=== PATIENT | male | born 1980 | race Caucasian/White ===

== ENCOUNTER 2017-04-08 05:40 | Outpatient (CLI) | payer OTHER ==
[~2017-04-08] VITALS: Ht 188 cm; Wt 83.9 kg
[~2017-04-08 05:40] MED LIST: CETI10TA17 PO; OMEP20CA12 PO; PANT40TA PO; SCR1T1 PO
== END 2017-04-08 10:50 ==
LOC: PREOP 05:40
PROVIDERS: ATTEND Surgery
DX: Z01.818 Encounter for other preprocedural examination (principal); K21.9 Gastro-esophageal reflux disease without esophagitis; Z86.010 Personal history of colon polyps

== ENCOUNTER 2017-04-22 11:58 | Day surgery (SDC) | payer OTHER ==
[~2017-04-22] VITALS: Ht 188 cm; Wt 83.9 kg
[2017-04-22] MEDS ORDERED: LIDOCAINE JELLY 2% (XYLOCAINE) 5 ML TUBE MM PRN (12:15)
[2017-04-22] MEDS ORDERED: HURRICAINE EXT TUBE (BENZOCAINE) XX PRN (12:15)
[2017-04-22 12:20] VITALS: BP 120/75
--- OUTSIDE RECORDS SUMMARY | 2017-04-22 12:27 | XMS REPORT | Continuity of Care Document ---
Author Author [facility] Organization [facility] Address Unknown Phone Unavailable Allergies Active Description Code Type Severity Reaction Onset Reported/Identified Relationship to Patient Clinical Status Yes No Known Drug Allergies [id number] Drug Allergy Unknown N/ A 04/08/2017 Medications Problems Date Dx Coded Attending Type Code Diagnosis Diagnosed By 01/31/2013 REYES KAUFFMAN MD, Ot 211.4 BENIGN NEOPL RECTUM/ANUS 01/31/2013 REYES KAUFFMAN MD, Ot 530.11 REFLUX ESOPHAGITIS 01/31/2013 REYES KAUFFMAN MD Ot 535.50 UNSP GASTRITIS GASTRODUODENITIS W/O ME 01/31/2013 REYES KAUFFMAN MD, Ot 553.3 DIAPHRAGMATIC HERNIA 01/31/2013 REYES KAUFFMAN MD Ot V16.0 FAMILY HX-GI MALIGNANCY 03/31/2017 REYES KAUFFMAN MD Ot V72.84 EXAM PRE-OPERATIVE NOS 04/08/2017 REYES KAUFFMAN MD, Ot K21.9 GASTRO-ESOPHAGEAL REFLUX DISEASE WITHOUT 04/08/2017 REYES KAUFFMAN MD Ot Z01.818 ENCOUNTER FOR OTHER PREPROCEDURAL EXAMIN 04/08/2017 REYES KAUFFMAN MD, Ot Z86.010 PERSONAL HISTORY OF COLONIC POLYPS 04/08/2017 REYES KAUFFMAN MD, Ot K21.9 GASTRO-ESOPHAGEAL REFLUX DISEASE WITHOUT 04/08/2017 REYES KAUFFMAN MD Ot Z01.818 ENCOUNTER FOR OTHER PREPROCEDURAL EXAMIN 04/08/2017 REYES KAUFFMAN MD, Ot Z86.010 PERSONAL HISTORY OF COLONIC POLYPS 04/14/2017 REYES KAUFFMAN MD, Ot K21.9 GASTRO-ESOPHAGEAL REFLUX DISEASE WITHOUT 04/14/2017 REYES KAUFFMAN MD Ot Z01.818 ENCOUNTER FOR OTHER PREPROCEDURAL EXAMIN 04/14/2017 REYES KAUFFMAN MD, Ot Z86.010 PERSONAL HISTORY OF COLONIC POLYPS Procedures Results Encounters ACCT No. Visit Date/Time Discharge Status Pt. Type Provider Facility Loc./Unit Complaint [id number] 04/15/2017 12:00:00 2016 23:59:59 CLS Preadmit REYES KAUFFMAN MD [facility] ENDO HX POLYPS/REFLUX [id number] 04/08/2017 05:40:00 2016 10:50:00 DIS Outpatient REYES KAUFFMAN MD [facility] PREOP COLONOSCOPY/EGD [id number] 01/31/2013 08:19:00 2012 12:50:00 DIS Outpatient REYES KAUFFMAN MD [facility] SDC SCREENING/REFLUX [id number] 01/24/2013 07:16:00 2012 23:59:59 CLS Outpatient REYES KAUFFMAN MD [facility] PREOP SCREENING/REFLUX [id number] 04/22/2017 11:58:00 ACT Outpatient REYES KAUFFMAN MD [facility] ENDO HX POLYPS/REFLUX
[2017-04-22] MEDS ORDERED: NS IV 500 ML 500 ML IV PRN (12:30)
[2017-04-22] MEDS ORDERED: MIDAZOLAM 2 MG/2 ML (VERSED) VIAL ONE ×5 (12:33→13:13)
[2017-04-22] MEDS ORDERED: fentaNYL INJECTION 100 MCG/2 ML AMP ONE ×2 (12:34)
[2017-04-22] MEDS ORDERED: HURRICAINE EXT TUBE (BENZOCAINE) ONE (12:34)
[2017-04-22] MEDS ORDERED: LIDOCAINE JELLY 2% (XYLOCAINE) 5 ML TUBE ONE (12:35)
[2017-04-22] MEDS: fentaNYL INJECTION 100 MCG/2 ML AMP IVP PRN ×4 (12:53→13:35)
--- NOTE | 2017-04-22 12:54 | Conscious Sedation/ASA ---
Conscious Sedation Pre-Proced Time Reviewed: 12:30 ASA Class: 1 Airway Mallampati Classification: ([place] appropriate class) I. II. III, IV Lungs Heart ASA score ASA 1: a normal healthy patient ASA 2: a patient with a mild systemic disease (mid diabetes, controlled hypertension, obesity ASA 3: a patient with a severe systemic disease that limits activity (angina , COPD, prior Myocardial infarction) ASA 4: a patient with an incapacitating disease that is a constant threat to life (CHF, renal failure) ASA 5: a moribund patient not expected to survive 24 hrs. (ruptured aneurysm) ASA 6: a declared brain patient whose organs are being harvested. For emergent operations, add the letter E after the classification Grade 2 Sedation Plan: Analgesia, Amnesia, Plan communicated to team members, Discussed options with patient/fam, Discussed risks with patient/fam Note The patient is an appropriate candidate to undergo the planned procedure, sedation, and anesthesia. The patient immediately re-assessed prior to indication. REYES KAUFFMAN MD Apr 22, 2017 12:54 pm
[2017-04-22] MEDS: MIDAZOLAM 2 MG/2 ML (VERSED) VIAL IVP PRN ×5 (12:55→13:20)
--- NOTE | 2017-04-22 12:55 | Progress Note-Pre Operative ---
Pre-Operative Progress Note H&P Reviewed The H&P was reviewed, patient examined and no changes noted. Date Seen by Provider: Apr 22, 2017 Time Seen by Provider: 12:30 Date H&P Reviewed: Apr 22, 2017 Time H&P Reviewed: 12:30 Pre-Operative Diagnosis: GERD, hx polyp, family hx colon ca REYES KAUFMFAN MD Apr 22, 2017 12:55 pm
[2017-04-22] MEDS ORDERED: HYDROcodone/APAP 5 MG/325 MG (LORTAB) TAB PO PRN (13:00)
[2017-04-22] MEDS ORDERED: ACETAMINOPHEN 325 MG TABLET/CAPLET (TYLENOL) PO PRN (13:00)
[2017-04-22] MEDS ORDERED: ONDANSETRON 4 MG/2 ML (SDV) Z0FRAN IV PRN (13:00)
[2017-04-22] MEDS ORDERED: morphine INJ 10 MG/ML 1ML (SYR OR VIAL) IV PRN (13:00)
--- NOTE | 2017-04-22 13:58 | Progress Note-Post Operative ---
Post-Operative Progess Note Surgeon (s)/Seasonal Package Handler (s) Surgeon REYES KAUFFMAN MD Seasonal Package Handler: none Pre-Operative Diagnosis GERD, hx polyp, family hx colon ca Post-Operative Diagnosis reflux esophagitis(class B), small-mod HH(2.5cm), chronic small antral ulcer. normal colon and rectum. Procedure & Operative Findings Date of Procedure 04/22/17 Procedure Performed/Findings EGD with bx. Colonoscopy. Anesthesia Type CS Estimated Blood Loss Estimated blood loss (mL): minimal Specimens/Packing Specimens Removed GE jxn, antrum REYES KAUFFMAN MD Apr 22, 2017 1:58 pm
[2017-04-22] MEDS ORDERED: PANT40TA2 PO (13:59)
[2017-04-22 14:00] VITALS: BP 101/60
--- NOTE | 2017-04-22 14:00 | Discharge Inst-Surgical ---
D/C Lap Instructions-KIDO New, Converted, or Re-Newed RX: RX on Chart Follow Up 5 yrs Activity as tolerated High Fiber Diet 25g or more per day Avoid Alcohol, Caffeine, Spicy [place] and Acid foods. Drink 64 fluid oz or more of fluids per day. Symptoms to Report: Fever over 101 degree F, Nausea/Vomiting If any problems/questions: Contact your physician or go to Emergency Room REYES KAUFFMAN MD Apr 22, 2017 1:59 pm
[2017-04-22 14:45] VITALS: BP 114/69
[2017-04-22 14:55] VITALS: BP 114/69
--- NOTE | 2017-04-22 18:17 | OPERATIVE REPORT ---
DATE OF SERVICE: 04/22/2017 ATTENDING PRIMARY PHYSICIAN: Helene Khan M.D. PREOPERATIVE DIAGNOSES: Gastroesophageal reflux disease, history of colon polyp, family history of colon cancer. POSTOPERATIVE DIAGNOSES: Reflux esophagitis class B, no ulcers or strictures. Small to moderate size hiatal hernia approximately 2.5 cm in size, moderate gastritis with small old antral ulcer almost healed. Colon and rectum were normal. DISPOSITION: The patient tolerated the procedure well. INDICATIONS: The patient is a 37-year-old male known to us. We had initially seen in 2013 for gastroesophageal reflux disease as well as a family history of colon cancer. At the time, he underwent an EGD and colonoscopy. A colon polyp was identified and small and a benign hyperplastic polyp. He was also found to have a small hiatal hernia as well as moderate gastritis. Biopsies were negative for H. pylori as well as negative for [place]'s esophagus. He states that he has had worsened reflux symptoms over the past year. He may relate this to a work and stress. He also would like to have a screening colonoscopy. He does have a family history of colon cancer with his father having a disease. His brother also has had multiple polyps removed. DESCRIPTION OF PROCEDURE: The patient was brought to the endoscopy suite and laid in the left sludge decubitus position. After adequate IV pain and sedative medications and conscious sedation anesthesia, the mouthpiece was applied. The endoscope was then placed in the mouth visualizing the pharynx and hypopharyngeal region. Vocal cords, epiglottis and vallecula identified and appeared to be normal. The endoscope was then gently intubated into the esophagus and esophagus insufflated. The endoscope was then advanced to the first, second and third portions of the esophagus. At the level of the GE junction, a reflux esophagitis class B identified. There were no ulcers or strictures identified in this region. A biopsy was taken. The endoscope was then easily advanced into the stomach and then endoscope retroflexed, visualizing a small to moderate size hiatal hernia approximately 2.5 cm in size. There was a moderate severity gastritis more focused towards the stomach antrum with what appeared to be an old healing ulcer, which was small and approximately 2 to 3 mm in size. This was biopsied with forceps with visualization of good hemostasis. The endoscope was then advanced to the pylorus and the first and second portions of the duodenum with no distal obstructions. The endoscope was then slowly withdrawn while taking a second look and suctioning of residual air with no additional findings. The patient tolerated the procedure well. For his reflux esophagitis, hiatal hernia as well as gastritis. We will start him on Protonix 40 mg daily, as well as the necessary lifestyle and diet accommodation including small and more frequent meals, avoidance of eating at night as well as head elevation while laying supine. He also needs to avoid alcoholic and caffeinated beverages as well as spicy, greasy and acidic foods. We will also start him on Protonix 40 mg daily. Under the same conscious sedation anesthesia, we then proceeded with the colonoscopy portion of the procedure. A digital rectal examination was performed. There were no significant hemorrhoids identified as well as normal sphincter tone. The prostate gland was palpable and appeared normal. The endoscope was then intubated to the anus and rectum and gently insufflated. The endoscope was then advanced to the valves of [place] of the rectum with no polyps or any neoplasms identified. We then proceeded through the sigmoid colon where no diverticulosis identified. The endoscope was then advanced through the remainder of the descending, transverse and ascending colon to the cecum. These segments were normal. There were no polyps or any neoplasms identified throughout the colon or rectum. The endoscope was then slowly withdrawn while taking a second look and suctioning of residual air with no additional findings. The patient tolerated the procedure well. We will have him continue with medical management with a high fiber diet with at least 30 grams of fiber per day as well as at least 64 fluid ounces of water daily to promote soft stools on a daily basis. He does not need another colonoscopy for another 5 years. Job ID: [id number] DocumentID: [id number] Dictated Date: 04/22/2017 13:59:14 Rubber Mill Tender Date: 04/22/2017 18:17:18 Dictated By: REYES KAUFFMAN MD
== END 2017-04-22 14:55 | disposition home or self-care (01) ==
LOC: ENDO 11:58
PROVIDERS: ATTEND Surgery
DX: Z12.11 Encounter for screening for malignant neoplasm of colon (principal); Z87.19 Personal history of other diseases of the digestive system; Z80.0 Family history of malignant neoplasm of digestive organs; K21.0 Gastro-esophageal reflux disease with esophagitis; K44.9 Diaphragmatic hernia without obstruction or gangrene; K29.70 Gastritis, unspecified, without bleeding; K25.7 Chronic gastric ulcer without hemorrhage or perforation; J45.909 Unspecified asthma, uncomplicated

== ENCOUNTER → 2019-04-24 | Outpatient (CLI) | payer OTHER ==
[~2019-04-24] MED LIST changes: +PANT40TA2 PO
[2019-04-24 09:15] LABS: BASOPHILS % (AUTO) 1 % (0-10); EOSINOPHILS # (AUTO) 0.1 10^3/uL (0.0-0.3); EOSINOPHILS % (AUTO) 3 % (0-10); HEMATOCRIT 46 % (40-54); HEMOGLOBIN 15.7 G/DL (13.3-17.7); LYMPHOCYTES # (AUTO) 2.5 X 10^3 (1.0-4.0); LYMPHOCYTES % (AUTO) 51 % (12-44); MEAN CORPUSCULAR HEMOGLOBIN 32 PG (25-34); MEAN CORPUSCULAR HGB CONC 34 G/DL (32-36); MEAN CORPUSCULAR VOLUME 93 FL (80-99); MEAN PLATELET VOLUME 9.5 FL (7.4-10.4); MONOCYTES # (AUTO) 0.4 X 10^3 (0.0-1.0); MONOCYTES % (AUTO) 9 % (0-12); NEUTROPHILS # (AUTO) 1.8 X 10^3 (1.8-7.8); NEUTROPHILS % (AUTO) 37 % (42-75); PLATELET COUNT 293 10^3/uL (130-400); RED CELL DISTRIBUTION WIDTH 13.1 % (10.0-14.5); WHITE BLOOD COUNT 4.8 10^3/uL (4.3-11.0)
[2019-04-24 09:39] LABS: ALANINE AMINOTRANSFERASE 23 U/L (0-55); ALBUMIN 4.9 GM/DL (3.2-4.5); ALKALINE PHOSPHATASE 53 U/L (40-136); BILIRUBIN,TOTAL 1.1 MG/DL (0.1-1.0); BUN/CREATININE RATIO 13; CALCIUM 9.5 MG/DL (8.5-10.1); CARBON DIOXIDE 27 MMOL/L (21-32); CHLORIDE 102 MMOL/L (98-107); CHOLESTEROL 208 MG/DL (< 200); CREATININE SERUM 1.04 MG/DL (0.60-1.30); GFR ESTIMATED > 60; GLUCOSE 109 MG/DL (70-105); HDL CHOLESTEROL 96 MG/DL (40-60); POTASSIUM 4.1 MMOL/L (3.6-5.0); SODIUM 137 MMOL/L (135-145); TOTAL PROTEIN 7.3 GM/DL (6.4-8.2); TRIGLYCERIDES 61 MG/DL (<150); VLDL CHOLESTEROL 12 MG/DL (5-40)
== END ==
LOC: LAB 09:02
PROVIDERS: ATTEND Nurse Practitioner Family
DX: Z09 Encounter for follow-up examination after completed treatment for conditions other than malignant neoplasm (principal)
CPT/HCPCS: 36415; 80053; 80061; 84443; 85025

== ENCOUNTER → 2019-11-23 | Outpatient (CLI) | payer OTHER | LOC: LAB 08:52 | PROVIDERS: ATTEND Nurse Practitioner Family | DX: M25.431 Effusion, right wrist (principal) | CPT/HCPCS: 36415; 85652; 86141; 86431 ==

== ENCOUNTER 2022-09-29 05:40 | Outpatient (CLI) | payer OTHER ==
[~2022-09-29] VITALS: Ht 185.4 cm; Wt 81.8 kg
== END 2022-09-29 09:00 | disposition home or self-care (01) ==
LOC: PREOP 05:40
PROVIDERS: ATTEND Surgery
DX: Z01.818 Encounter for other preprocedural examination (principal)

== ENCOUNTER 2022-10-06 09:47 | Day surgery (SDC) | payer OTHER ==
[~2022-10-06] VITALS: Ht 185.4 cm; Wt 81.8 kg
[2022-10-06 10:08] VITALS: BP 122/84
[2022-10-06] MEDS ORDERED: LACTATED RINGERS 1,000 ML IV STA (11:43)
[2022-10-06] MEDS ORDERED: HURRICAINE EXT TUBE (BENZOCAINE) XX PRN (11:45)
[2022-10-06] MEDS ORDERED: LIDOCAINE JELLY 2% 6 ML SYRINGE MM PRN (11:45)
[2022-10-06 11:55] VITALS: BP 102/59
[2022-10-06 12:00] VITALS: BP 105/63
[2022-10-06 12:05] VITALS: BP 106/65
[2022-10-06 12:10] VITALS: BP 118/81
--- NOTE | 2022-10-06 12:18 | Progress Note-Pre Operative ---
Pre-Operative Progress Note Date of Available H&P: October 06, 2022 Date H&P Reviewed: October 06, 2022 Time H&P Reviewed: 10:30 History & Physical: No changes noted Pre-Operative Diagnosis: hx Menchaca's, GERD, screening/family hx colon ca REYES KAUFFMAN MD October 06, 2022 12:18
--- NOTE | 2022-10-06 12:22 | Progress Note-Post Operative ---
Post-Operative Progess Note Surgeon (s)/Horse Trainer (s) Surgeon REYES KAUFFMAN MD Horse Trainer: none Pre-Operative Diagnosis hx Menchaca's, GERD, screening/family hx colon ca Post-Operative Diagnosis reflux esophagitis(grade B-C), small HH(2.5cm), mod-severe gastritis, mild chronic stage 2 exxt and int hemorrhoids, small HP polyp transverse colon. Procedure & Operative Findings Date of Procedure 10/06/22 Procedure Performed/Findings EGD with bx. Colonoscopy with bx. Anesthesia Type mac Estimated Blood Loss Estimated blood loss (mL): minimal Specimens/Packing Specimens Removed ge jxn, antrum, transverse colon polyp REYES KAUFFMAN MD October 06, 2022 12:22
[2022-10-06] MEDS ORDERED: OMEP40CA6 PO (12:23)
--- NOTE | 2022-10-06 12:23 | Discharge Inst-Surgical ---
D/C Lap Instructions-KIDO New, Converted, or Re-Newed RX: RX on Chart Follow Up 5 years Activity as tolerated High Fiber Diet 25g or more per day Avoid Alcohol, Caffeine, Spicy [place] and Acid foods. Drink 64 fluid oz or more of fluids per day. Symptoms to Report: Fever over 101 degree F, Nausea/Vomiting If any problems/questions: Contact your physician or go to Emergency Room REYES KAUFFMAN MD October 06, 2022 12:23
[2022-10-06] MEDS ORDERED: ONDANSETRON 4 MG/2 ML (SDV) Z0FRAN IVP PRN (12:30)
[2022-10-06] MEDS ORDERED: ONDANSETRON 4 MG (ZOFRAN) ORAL DISSOLVE TAB PO PRN (12:30)
[2022-10-06 12:31] VITALS: BP 118/81
--- NOTE | 2022-10-06 13:09 | Anesthesia-General Post-Op ---
MAC Patient Condition Mental Status/LOC: Same as Preop Cardiovascular: Satisfactory Nausea/Vomiting: Absent Respiratory: Satisfactory Pain: Controlled Complications: Absent Post Op Complications Complications None Follow Up Care/Instructions Patient Instructions None needed. Anesthesiology Discharge Order Discharge Order Patient is doing well, no complaints, stable vital signs, no apparent adverse anesthesia problems. No complications reported per nursing. KATY HERNANDEZ CRNA October 06, 2022 13:09
--- NOTE | 2022-10-06 21:16 | OPERATIVE REPORT ---
DATE OF SERVICE: 10/06/2022 ATTENDING PRIMARY CARE PHYSICIAN: Helene Khan MD PREOPERATIVE DIAGNOSES: History of Menchaca's esophagus, gastroesophageal reflux disease, history of colon polyp, family history of colon cancer. POSTOPERATIVE DIAGNOSES: Reflux esophagitis, [place] between grade B and C; small hiatal hernia approximately 2 cm in size, moderate to severe gastritis; mild chronic stage II external and internal hemorrhoids, small hyperplastic polyp of the transverse colon. PROCEDURE: EGD with biopsy, colonoscopy with polypectomy with hot biopsy forceps. SURGEON: Reyes Cm MD ANESTHESIA: Monitored anesthesia care. ESTIMATED BLOOD LOSS: Minimal. FINDINGS: Reflux esophagitis, [place] between grade B and C; small hiatal hernia approximately 2 cm in size, moderate to severe gastritis; mild chronic stage II external and internal hemorrhoids, small hyperplastic polyp of the transverse colon. DISPOSITION: The patient tolerated the procedure well. INDICATIONS: The patient is a 42-year-old male known to us. We had initially seen him in 2012 for gastroesophageal reflux disease as well as a first-degree family history of colon cancer. He was found to have reflux esophagitis, [place] grade B and a small hiatal hernia approximately 2 to 2.5 cm in size, but with moderate gastritis. During the colonoscopy, he was found to have a small hyperplastic polyp. He underwent a repeat endoscopy in 2017 where biopsies of the GE junction were consistent with [place]chaca's esophagus. He states no significant symptoms of reflux at this time and no major changes in bowel habits. DESCRIPTION OF PROCEDURE: The patient was brought to the endoscopy suite and laid in the left lateral decubitus position. After adequate IV pain, sedative medications and monitored anesthesia care, the mouthpiece was applied. The endoscope was placed in the mouth, visualizing the pharynx and hypopharyngeal region. Vocal cords, epiglottis and vallecula identified and appeared to be normal. The endoscope was then gently intubated into the esophageal opening and esophagus insufflated. The endoscope was then advanced to the first, second, third portions of esophagus. At the level of the GE junction, a reflux esophagitis between [place] grade B and C identified. A biopsy was taken with forceps with visualization of good hemostasis. The endoscope was then advanced in the stomach and endoscope retroflexed visualizing same small hiatal hernia approximately 2 to 2.5 cm in size. There was a moderate to severe gastritis with a small erosion along the lesser curvature. A biopsy was taken of the antrum to rule out H. pylori with visualization of good hemostasis. The endoscope was then advanced to the pylorus and the first and second portion of the duodenum, which appeared normal. The endoscope was then slowly withdrawn while taking a second look and suctioning of residual air with no additional findings. A digital rectal examination was performed which revealed chronic stage II, external and internal hemorrhoids, not actively edematous nor inflamed and no bleeding. Normal sphincter tone was felt and no palpable masses. Prostate gland was palpable and appeared normal. The endoscope was then intubated into the anus, rectum gently insufflated. The endoscope was then advanced through the valves of [place] of the rectum with no polyps or any neoplasms identified. Through the sigmoid colon, no diverticulosis identified. We then proceeded through the remainder of the descending and transverse colon and at the level of the transverse colon, a small hyperplastic polyp approximately 1 to 2 mm in size was identified. This was biopsied and destroyed with forceps and electrocautery with visualization of good hemostasis. The endoscope was then advanced through the remainder of the transverse, descending colon to the cecum, which were normal. The endoscope was then slowly withdrawn while taking a second look and suctioning of residual air with no additional findings. The patient tolerated the procedure well. We will recommend the necessary lifestyle and diet accommodation for reflux esophagitis as well as gastritis, which would encompass avoidance of caffeinated beverages, spicy, greasy and acidic foods as well as alcoholic beverages. He also needs to take in small and more frequent meals and avoid eating at night. He also needs to be on an acid living supervisor and we will start him on omeprazole 40 mg daily. We will await the biopsy results; however, due to his history of [place]chaca's esophagus, he would likely need followup EGD in 3 to 5 years. A small hyperplastic transverse colonic polyp was identified, which does not have any malignancy potential however, due to his first-degree family history of colon cancer, we will recommend a followup colonoscopy in 5 years. We will also recommend that he proceed with a high-fiber diet with a fiber supplement, which should equal or exceed 30 grams daily. Job ID: [id number] DocumentID: [id number] Dictated Date: 10/06/2022 12:06:35 Rug Backing Stenciler Date: 10/06/2022 21:14:00 Dictated By: REYES CM MD
== END 2022-10-06 12:31 | disposition home or self-care (01) ==
LOC: ENDO 09:47
PROVIDERS: ATTEND Surgery
DX: Z12.11 Encounter for screening for malignant neoplasm of colon (principal); D12.3 Benign neoplasm of transverse colon; K22.70 Barrett's esophagus without dysplasia; K21.00 Gastro-esophageal reflux disease with esophagitis, without bleeding; K44.9 Diaphragmatic hernia without obstruction or gangrene; K29.70 Gastritis, unspecified, without bleeding; K64.1 Second degree hemorrhoids; K64.4 Residual hemorrhoidal skin tags
CPT/HCPCS: 88305